=== PATIENT | female | born 1990 | race Caucasian/White ===

== ENCOUNTER 2018-05-23 22:30 | Emergency (ER) | payer SELFPAY ==
[2018-05-23 22:39] VITALS: BP 128/64; PULSE 79; RESP 18; TEMP 36.6; O2SAT 98
[2018-05-23 22:58] LABS: Bilirubin Negative (Negative); Blood Negative (Negative); Clarity Clear; Glucose Negative (Negative); Ketones Negative (Negative); Leukocyte Esterase Negative (Negative); Nitrite Negative (Negative); Urobilinogen 0.2 EU/dL (Up TO 0.2)
--- NOTE | 2018-05-23 23:05 | ED.GENADUL ---
Disposition Clinical Impression: Vaginal foreign body Disposition: HOME Condition: Good Additional Instructions: You had a tampon that was stuck to the iud strings so the iud had to be removed. Please use condoms when having intercourse to prevent I have placed you on our follow up list for help with insurance and also to see women's wellness for iud placement if you have severe worsening of pain or fevers return to the emergency department Medical Decision Making - Medical Decision Making Pt here with retained foreign body on exam that was removed and had to remove IUD with it. She has no abdominal tenderness at this time, suspect her pain could have been from retained foreign body, no discharge or pain now so doubt pid. 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 She has had mild left lower pelvic pain for months and the past day she has had a sensation there is something stuck in her vagina. I performed speculum exam with nurse Edenilson Neves at bedside. The speculum exam showed a retained tampon that appears to have been in there for quite some time and patient is not sure how long it was in there. It was stuck to her IUD strings and I was unable to seperate it from the strings so I had to pull the IUD. No discharge or bleeding during exam. HAs no abdominal tenderness MD Complaint: feeling something in her vagina Onset/Timin -: days(s) Improves with: none Worsens with: none - Related Data Acetaminophen [Tylenol] 1 tab PO PRN PRN 04/16/14 Ibuprofen [Advil] 1 tab PO PRN PRN 04/16/14 Ondansetron ODT [Zofran Odt] 4 mg PO Q8H PRN PRN #20 tabef 08/12/17 Allergies Allergy/AdvReac Type Severity Reaction Status Date / Time gluten AdvReac Intermediate GI symptoms Unverified 08/12/17 19:41 Review of Systems Constitutional: denies: fever Respiratory: denies: shortness of breath Cardiovascular: denies: chest pain Gastrointestinal: denies: nausea, vomiting Neurological: denies: headache Comment: All other systems reviewed and negative Past Medical History - Past Medical History Medical history: no medical history - Social History Alcohol use: rarely Drug use: marijuana General Exam - General Limitations: no limitations General appearance: alert, in no apparent distress - Head Head exam: Present: atraumatic - Eye Eye exam: Present: normal apperance - ENT ENT exam: Present: mucous membranes moist - Neck Neck exam: Present: normal inspection - Respiratory Respiratory exam: Absent: respiratory distress - Cardiovascular Cardiovascular Exam: Present: regular rate - GI/Abdominal GI/Abdominal exam: Present: soft. Absent: distended, tenderness, guarding, rebound, rigid - External exam: Present: normal external exam Speculum exam: Present: foreign body. Absent: vaginal discharge, cervical discharge, vaginal bleeding - Extremities Exam Extremities exam: Present: normal inspection - Neurological Exam Neurological exam: Present: alert, oriented X3 - Psychiatric Psychiatric exam: Present: anxious - Skin Skin exam: Present: warm Course Vital Signs - 24 hr 05/23/18 22:39 Temperature 97.9 F Pulse 79 Respiratory 18 Rate Blood Pressure 128/64 Pulse Oximetry 98
--- NOTE | 2018-05-24 14:32 | PDOC.ERCMPRO ---
Care Management Progress Note 05/24-Dr. Batista requested assistance with a [facility] and PCP (Dr. Peralta professional fee coder) within 2 weeks for vaginal foreign body, tampon stuck in IUD strings and IUD was removed. Referral faxed to [facility] and [facility].
--- NOTE | 2018-05-24 14:33 | CMPROGNOTE_ITS ---
Care Management Progress Note 05/24-Dr. Batista requested assistance with a [facility] and PCP (Dr. Peralta customer relations coordinator) within 2 weeks for vaginal foreign body, tampon stuck in IUD strings and IUD was removed. Referral faxed to [facility] and [facility].
== END 2018-05-23 23:25 | disposition home or self-care (01) ==
PROVIDERS: Emergency Provider Emergency Medicine; PCP Nurse Practitioner Family
DX: T19.2XXA Foreign body in vulva and vagina, initial encounter (principal); T83.32XA Displacement of intrauterine contraceptive device, initial encounter; Y84.8 Other medical procedures as the cause of abnormal reaction of the patient, or of later complication, without mention of misadventure at the time of the procedure
CPT/HCPCS: 81025; 99284; 58301; 81003

== ENCOUNTER → 2018-05-28 14:00 | Outpatient (REF) | payer SELFPAY ==
--- NOTE | 2018-05-28 13:00 | PAPFT_PTH ---
PATIENT: Monika Conde LOC: [facility] U#:[id number] AGE/SX: 35/F ROOM: RE05/28/[address]: Rosalinda Rose MD : 1990 BED: DIS: SPEC #: [id number] RECD: 05/28/18 18:00 STATUS: WAYLON REGarima #: [id number] YESIKA: 05/28/18 13:[address]: Rosalinda Rose DEPT: [facility] Cytology RECD BY: Rubina Butt ENTERED: 05/28/18 18:00 SP TYPE: PAPFT OTHR DR: Felicia Au Tissues: 1 - CX/ENDOCX FOR PAP SMEARS Procedures: PAP THIN PREP/UVM Screening HPV DNA PROBE Comments: [id number]
== END ==
LOC: LBN 14:00
PROVIDERS: PCP Nurse Practitioner Family; Visit Provider Obstetrics & Gynecology
DX: Z12.4 Encounter for screening for malignant neoplasm of cervix (principal)
CPT/HCPCS: 88142; 87624

== ENCOUNTER 2018-09-13 14:14 | Outpatient (CLI) | payer SELFPAY ==
--- NOTE | 2018-09-13 10:24 | DI.US_ITS ---
SYMPTOM/DIAGNOSIS: PELVIC PAIN, R10.2 LLQ PAIN PELVIC ULTRASOUND: 09/13 Pelvic ultrasound was performed transabdominally and transvaginally. Please see the accompanying data sheet for measurements of the pelvic structures. There is moderate amount of free fluid in the cul de sac and right sabrina-ovarian area. The myometrium is unremarkable in appearance. Endometrial stripe is about 7 mm in thickness and appears homogeneous. The right ovary has a normal follicular appearance. The left ovary contains solid 21 x 15 x 23 mm in diameter lesion with some peripheral vascularity. This may represent a corpus luteum. Ovarian mass not excluded and follow up ultrasound is requested in 4-6 weeks.
== END 2018-09-13 14:34 ==
PROVIDERS: Visit Provider Obstetrics & Gynecology
DX: R10.2 Pelvic and perineal pain (principal); R10.32 Left lower quadrant pain; N83.12 Corpus luteum cyst of left ovary
CPT/HCPCS: 76830; 76856

== ENCOUNTER 2018-09-15 16:14 | Emergency (ER) | payer SELFPAY ==
[2018-09-15 16:19] VITALS: BP 102/67; PULSE 79; RESP 18; TEMP 36.8; O2SAT 97
--- NOTE | 2018-09-15 16:37 | W.ED.GENAD ---
Discharge Plan Disposition Patient Disposition: HOME Condition: Good Discharge Details Chief Complaint: Nk/Back Pain Clinical Impression: Lumbago Primary Care Provider: None,None ED Provider: Elvis Patterson Home Meds and New Rx's Prescriptions: New acetaminophen [Mapap Extra Strength] 500 MG tablet 1,000 mg PO Q6H 5 Days Qty: 60 RF: 0 lidocaine [Lidoderm] 1 PATCH patch 1 patch Topical Q24H Qty: 4 RF: 0 ibuprofen [Motrin IB] 200 MG tablet 600 mg PO Q6H 5 Days Qty: 60 RF: 0 cyclobenzaprine 10 mg tablet 10 mg PO TID Qty: 10 RF: 0 Discharge Instructions Instructions: Low Back Strain (ED) Additional Instructions: Please use ice and heat on your back to improve your symptoms. Please take medication as directed. Please do not take the Flexeril when driving, operating heavy machinery, swimming, or using firearms. If you notice any worsening of your symptoms, or any new symptoms such as numbness or tingling in your groin, bowel or bladder incontinence, vomiting, diarrhea, fever, chills, shortness of breath, chest pain, numbness, weakness, or fainting , please return immediately to the emergency department for reevaluation. Please follow up with your primary care provider as soon as possible for reassessment and reevaluation. As always, it was a pleasure participating in your medical care today. Medical Decision Making This is a 27-year-old female who presents today for back pain. Roughly 5 days ago the patient slipped on some ice and landed on her buttock and back. She had some mild pain and tightness since then which is gradually increased. It is worsened when she has prolonged sitting which is the main position of her new job. Additionally the patient states that her symptoms are worsened when she lifts her 100 pound dog up her flight of stairs at home. Physical exam demonstrates no red flags suggestive of cauda equina syndrome, significant lumbar pathology. There is no midline tenderness, no saddle anesthesia, no history of bowel or bladder incontinence, she has normal strength, normal reflexes. Her signs and symptoms on physical exam and per history appear musculoskeletal in nature, and I feel she has a paraspinal muscle sprain that is the cause of her symptoms. We discussed further imaging, and at this time the patient would like to hold off on any additional imaging. I do think this is very reasonable giving her current clinical scenario. Patient will be discharged home with NSAIDs, recommendations for ice and heating pads, Flexeril and Lidoderm patch. We had a long discussion regarding red flags which to return the patient understands. I have extensively reviewed the treatment plan and discharge instructions with the patient. I have addressed all patient concerns at this time. The patient was made aware of what symptoms to monitor for that would warrant a return to the emergency department. Discussed the plan with the patient, they demonstrate verbal understanding and agreement with our assessment and plan at this time. HPI General Date/Time Provider Initiated Documentation: 09/15/18 16:33. HPI Narrative: This is a pleasant 27-year-old female who presents for evaluation of back pain. Patient states that she fell 5 days ago while slipping on ice. She landed on her buttock, but after that she had noticed some tightness in her back. Pain was located paraspinally in the upper lumbar vertebra. It is worsened with movement, and worsened by prolonged sitting. She also recently switched jobs and now works at [employer], which leads to a prolonged amount of sitting in general, which she feels is worsening her symptoms. Additionally she has a 100 pound dog that she has been caring up and down her stairs at home which she also says worsens her symptoms. She denies any associated numbness tingling or weakness traveling down her legs. She denies any new or acute abdominal pain, vomiting, diarrhea, or dysuria. She denies any cough, fever, or chills. She denies any bowel or bladder incontinence. She denies any groin numbness or tingling. She denies any weakness of her legs. Of note the patient does have a prolonged history of ovarian cysts and pain, and is currently being treated for bacterial vaginosis and a vaginal yeast infection. She denies any new or worsening dysuria, new or worsening pelvic pain, no worsening vaginal discharge. She denies any other associated complaints. She denies any systemic symptoms of fever or chills. She did have an ultrasound within the last 72 hours, the results of which have been discussed with her and she is following up with obstetrics for. Results are included here: Pelvic ultrasound was performed transabdominally and transvaginally. Please see the accompanying data sheet for measurements of the pelvic structures. There is moderate amount of free fluid in the cul de sac and right sabrina-ovarian area. The myometrium is unremarkable in appearance. Endometrial stripe is about 7 mm in thickness and appears homogeneous. The right ovary has a normal follicular appearance. The left ovary contains solid 21 x 15 x 23 mm in diameter lesion with some peripheral vascularity. This may represent a corpus luteum. Ovarian mass not excluded and follow up ultrasound is requested in 4-6 weeks. Related Data Home Medications Medication Instructions Recorded Confirmed acetaminophen [Mapap Extra 1,000 mg PO Q6H 5 Days #60 tab 09/15/18 Strength] cyclobenzaprine 10 mg PO TID #10 tab 09/15/18 ibuprofen [Motrin Ib] 600 mg PO Q6H 5 Days #60 tab 09/15/18 lidocaine [Lidoderm] 1 patch TOPICAL Q24H #4 patch 09/15/18 Previous Rx's Medication Instructions Recorded acetaminophen [Mapap Extra 1,000 mg PO Q6H 5 Days #60 tab 09/15/18 Strength] cyclobenzaprine 10 mg PO TID #10 tab 09/15/18 ibuprofen [Motrin Ib] 600 mg PO Q6H 5 Days #60 tab 09/15/18 lidocaine [Lidoderm] 1 patch TOPICAL Q24H #4 patch 09/15/18 Allergies Allergy/AdvReac Type Severity Reaction Status Date / Time gluten AdvReac Intermediate GI symptoms Unverified 09/15/18 16:18 General Stated Complaint: Nk/Back Pain SHONDA: 4 Review of Systems Review of Systems All systems reviewed & are unremarkable except as noted in HPI and below PFSH Family History Grandmother Non-Hodgkin lymphoma Family History Grandmother Non-Hodgkin lymphoma Social History Smoking/Tobacco Use Status: Former Tobacco Use Social History Smoking/Tobacco Use Status: Former Tobacco Use Exam Narrative Exam Narrative: 1.Const: Well-nourished, Well-developed, appearing stated age 2.Eyes: PERRL, no conjunctival injection, and symmetrical lids. 3.ENT: Atraumatic external nose and ears. Moist MM. Neck: Symmetric, trachea midline, No thyromegaly. 4.CVS: +S1/S2, No murmurs or gallops. Peripheral pulses 2+ and equal in all extremities. Brisk capillary refill in all extremities. 5.RESP: Unlabored respiratory effort. Clear to auscultation bilaterally. No wheezes rales or rhonchi 6.GI: Soft, Nontender/Nondistended, No hepatosplenomegaly. No guarding or rebound. No significant pelvic tenderness. No guarding or rebound in the pelvic regions. No CVA tenderness peer 7.MSK: Normocephalic/Atraumatic, Extremities w/o deformity or ttp No cyanosis or clubbing, Normal movement of all extremities. No midline tenderness to palpation over the CTLS spine. Normal ROM in flexion, extension, side bend, and rotation. Patient does have mild to moderate paraspinal tenderness around L1. Notable muscle spasms. Patient has +5 out of 5 strength in the lower extremities in dorsiflexion and plantarflexion, knee flexion and extension, hip flexion and extension. There is +2 over 2 dorsalis pedis pulses bilaterally. There is normal sensation to the skin with light touch at the foot, knee, and hip. Normal saddle sensation. Good sensation over the deep sural nerve area bilaterally. Rectal exam was performed with female nurse Natalya at bedside with patient demonstrated good perirectal sensation and rectal tone. Reflexes are +2 over 4 in the patellar reflex bilaterally. Negative straight leg raise. No significant hip tenderness or hip instability. 8.Skin: Warm, Dry. No rashes or lesions. 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 Sensation grossly intact, no focal neurologic deficits. Please see musculoskeletal 10.Psych: (AAO) x3. Appropriate mood and affect Course Vital Signs Temperature 36.8 C 09/15/18 16:19 Pulse 79 09/15/18 16:19 Respiratory Rate 18 09/15/18 16:19 Blood Pressure 102/67 09/15/18 16:19 Pulse Oximetry 97 09/15/18 16:19 Temperature 36.8 C 09/15/18 16:19 Temperature Source Temporal Artery Scan 09/15/18 16:19 Pulse 79 09/15/18 16:19 Respiratory Rate 18 09/15/18 16:19 Respiratory Effort Non-Labored 09/15/18 16:25 Blood Pressure 102/67 09/15/18 16:19 Blood Pressure Position Sitting 09/15/18 16:19 Pulse Oximetry 97 09/15/18 16:19 Oxygen Delivery Method Room Air 09/15/18 16:19 Oxygen Flow Rate 0 09/15/18 16:19 Pain Level 8 09/15/18 16:19
[2018-09-15] MEDS: Acetaminophen 500 MG TAB 1000 MG PO (16:41)
[2018-09-15] MEDS: Ibuprofen 800 MG TAB PO (16:41)
[2018-09-15] MEDS: Lidocaine 5% Patch 1 PATCH TP (16:42)
== END 2018-09-15 16:50 | disposition home or self-care (01) ==
LOC: ER 16:59
PROVIDERS: Emergency Provider Student in an Organized Health Care Education/Training Program
DX: M54.5 Low back pain (principal); W00.0XXA Fall on same level due to ice and snow, initial encounter
CPT/HCPCS: 99283

== ENCOUNTER 2018-09-26 00:50 | Outpatient (CLI) | payer SELFPAY ==
--- NOTE | 2018-09-26 08:45 | DI.US_ITS ---
SYMPTOM/DIAGNOSIS: F/U OVARIAN CYST, N83.209, N94.6 PELVIC ULTRASOUND: Comparison is made with 09/13/18. Transabdominal and transvaginal pelvic ultrasound was performed. The uterus measures 6.6 cm. long by 3 cm. AP by 4.8 cm. transverse. The endometrial stripe is within normal limits at .6 cm. No myometrial mass is present. The right ovary measures 2.3 by 1.5 by 1.2 cm. There are small follicular cysts present. There is normal blood flow to the right ovary. No evidence of torsion is present. The left ovary measures 2.8 by 2.1 by 3.0 cm. There are simple cysts seen within the left ovary, the largest measuring 2.0 cm. The previously noted hypoechoic lesion on the left ovary is no longer visualized. There is normal blood flow to the left ovary. No evidence of torsion is seen. There is a small amount of free fluid in the cul-de-sac which is likely physiologic. No hydronephrosis is identified. IMPRESSION: Normal pelvic ultrasound. Resolution of the left ovarian lesion. Benign bilateral physiologic cysts are seen in the ovaries.
== END 2018-09-26 01:10 ==
PROVIDERS: Visit Provider Obstetrics & Gynecology
DX: N83.202 Unspecified ovarian cyst, left side (principal); N94.6 Dysmenorrhea, unspecified
CPT/HCPCS: 76830; 76856

== ENCOUNTER 2019-01-31 07:43 | Emergency (ER) | payer OTHER, SELFPAY ==
[2019-01-31 07:53] VITALS: BP 108/54; PULSE 74; RESP 14; TEMP 37.2; O2SAT 99
[2019-01-31] MEDS: Normal Saline 1,000 ML 1000 ML IV ×2 (08:20→09:14)
--- NOTE | 2019-01-31 08:30 | DI.US_ITS ---
Many abnormalities cannot be diagnosed. A normal exam does not exclude a congenital anomaly. Radiology No. LMP: 12/15/18 Exam Date: 01/31/19 [facility] wks days on EDC ([facility]) Confirmed: HISTORY: LLQ PAIN, ? CYST PREDICTED GESTATIONAL AGE NUMBER 6.5 weeks with a range of 5.5 week to 7.5 weeks. 1 Determined by___[id number]_X_LMP___HISTORY Info. pertaining to fetus # PLACENTA PRESENTATION Grade Cephalic___ Anterior___Posterior___ Breech____ Right Left Transverse(head right___ Fundal___Low-lying___Previa___ Transverse(head left___ Varying__X____ BIOMETRY AMNIOTIC FLUID BPD: mm weeks Normal HC: mm weeks Oligo Polyhydramnios AC: mm weeks FL: mm weeks AMNIOTIC FLUID INDEX >26 WK CRL: 15.3 mm 7.6 weeks Cisterna Magna: mm CI: RUQ: LUQ Cerebellum: cm EFW: grams Percentile RLQ: LLQ Total: cms Composite AGE= 7.6 wks EDC by US___09/13/19 BIOPHYSICAL PROFILE ANATOMY IDENTIFIED SCORE 0/2 Heart: 4-Chamber___Rate:BPM___163__ LVOT: RVOT: Amniotic Fluid(>2cms)____ Stomach: Kidneys: Respirations (>30 secs) Bladder: Post. Fossa: Body Flex/Extension 3 vessel cord: Ventricles: cord insertion: Lips:____ Extremity Flex/Extension spinal morphology: Nose: Total Score= Palate: NS=not seen OB ultrasound was performed utilizing first trimester protocol. There is a viable intrauterine gestation with crown rump length measurements consistent with a gestational age of 7 weeks 6 days and an EDC of 09/13/19. cardiac activity was observed at a rate of 163 BPM. Unremarkable appearance of the gestational sac. Limited scanning of the kidneys is unremarkable. Tiny quantity of free fluid noted in the pelvis which is likely physiologic. The ovaries have an unremarkable follicular appearance.
--- NOTE | 2019-01-31 08:36 | ED.GENADUL_ITS ---
Discharge Plan Disposition Patient Disposition: HOME Condition: Stable Discharge Details Chief Complaint: Abd Prob Clinical Impression: Hyperemesis gravidarum Primary Care Provider: None,None ED Provider: Cj Batista Home Meds and New Rx's Prescriptions: New Diclegis 10-10 mg tablet,delayed release (DR/EC) 1 tab PO DAILY Qty: 60 RF: 1 ondansetron 4 mg tablet,disintegrating 4 mg PO TID PRN (Reason: nausea and vomiting) 5 Days Qty: 30 RF: 0 Discharge Instructions Instructions: Hyperemesis Gravidarum (ED) Additional Instructions: I placed you on our follow up list for OBGYN follow up mannie for the diclogis, take two tablets at bedtime on day 1 and 2, if symptoms persist take 1 tablet in the morning and 2 at bedtime on day 3. IF symptoms persist, may increase to 1 tablet in the morning, 1 tablet in mid afternoon and 2 tablets at bedtime. Max dose of 4 tablets per day if you still have vomit after diclogis take zofran if you still have persistent vomit, feel dehydrated or have severe worsening pain return to the emergency department Medical Decision Making 28 yo female at about 8 weeks per pt comes in with n/v for 3 days and intermittent left lower pelvis pain, states this was natural conception without use of ivf. She has not been able to keep anything down for a few days and has had intermittent sharp left lower pelvic pain. Denies vaginal bleeding. On exam has soft nondistended abdomen without tenderness or distention, she localizes the pain to the left lower pelvis. Given exam unlikely diverticulitis, appendicitis or other general surgical pathology. Could be ovarian cyst, less likely torsion, will obtain u/s. On bedside u/s has live iup with fhr of 150 labs show no significant abnormalities, and u/s shows live iup otherwise no acute findings. She feels much better and is tolerating PO without pain. I suspect round ligament pain and hyperemesis. Will d/c with antiemetics and f/u with ob and return if worsening. We did discuss risks of zofran and she would like to have it in case she does still have n/v despite diclegis Differential Diagnosis hyperemesis, torsion, cyst Medical Records Medical records reviewed: Yes I reviewed the patient's medical records. Imaging Data Radiologic Study: Attestation: I personally reviewed and interpreted this imaging study as follows: Imaging: Ultrasound My impression: live iup, FHR 160 Lab Data Lab results reviewed: Yes I reviewed the patient's lab results. HPI General Mode of arrival: ambulatory . Date/Time Provider Initiated Documentation: 01/31/19 08:15 . Limitations to Documentation: no limitations . Information obtained by: patient . History of Present Illness 28 year old F presents to the emergency department with the chief complaint of nausae and vomit, described as moderate, and is localized to the pelvis. Patient started experiencing this day(s) (3) and it has been intermittent. No relieving factors improve symptom(s), No exacerbating factors reported . Patient did receive the following treatments prior to arrival, none Related Data Home Medications Medication Instructions Recorded Confirmed doxylamine-pyridoxine (vit B6) 1 tab PO DAILY #60 tab 01/31/19 [Diclegis] ondansetron 4 mg PO TID PRN 5 Days #30 tab 01/31/19 Previous Rx's Medication Instructions Recorded doxylamine-pyridoxine (vit B6) 1 tab PO DAILY #60 tab 01/31/19 [Diclegis] ondansetron 4 mg PO TID PRN 5 Days #30 tab 01/31/19 Allergies Allergy/AdvReac Type Severity Reaction Status Date / Time gluten AdvReac Intermediate GI symptoms Unverified 01/31/19 08:19 General Stated Complaint: Abd Prob SHONDA: 3 Review of Systems Review of Systems All systems reviewed & are unremarkable except as noted in HPI and below Constitutional Denies chills, Denies fever(s) and Denies weakness Cardiovascular Denies chest pain and Denies dyspnea Respiratory Denies cough and Denies dyspnea Integumentary/Breasts Denies rash Neurologic Denies weakness Endocrine Denies cold intolerance PFSH Family History Grandmother Non-Hodgkin lymphoma Social History Smoking/Tobacco Use Status: Former Tobacco Use Alcohol Intake: never Drug use: Daily Do you feel safe at home: Yes Do you feel safe in your relationship?: Yes Exam Const General: no acute distress Orientation: alert HENMT Head: normal to inspection Ears: external ears normal General nose exam: external nose normal Mouth: moist mucous membranes Eyes General: appearance normal, both eyes and all related structures Neck Neck: normal visual inspection Resp Effort & Inspection: normal respiratory effort and able to speak in complete sentences Cardio Rate: regular rate GI Palpation: soft Skin General skin exam: no rashes or lesions noted Neuro General: alert and oriented x3 Extrem General: normal to inspection Psych Mental Status: mental status grossly normal Course Vital Signs Temperature 37.2 C 01/31/19 07:53 Pulse 74 01/31/19 07:53 Respiratory Rate 14 01/31/19 07:53 Blood Pressure 108/54 L 01/31/19 07:53 Pulse Oximetry 99 01/31/19 07:53 Temperature 37.2 C 01/31/19 07:53 Temperature Source Temporal Artery Scan 01/31/19 07:53 Pulse 74 01/31/19 07:53 Respiratory Rate 14 01/31/19 07:53 Blood Pressure 108/54 L 01/31/19 07:53 Blood Pressure Position Sitting 01/31/19 07:53 Pulse Oximetry 99 01/31/19 07:53 Oxygen Delivery Method Room Air 01/31/19 07:53 Oxygen Flow Rate 0 01/31/19 07:53 Pain Level 5 01/31/19 07:53
[2019-01-31] MEDS: Ondansetron 4 MG/2 ML VIAL IVP (08:40)
[2019-01-31 08:41] LABS: Abs Immature Grans 0.02 k/cumm (0.0-0.09); Absolute Basophil Count 0.02 k/cumm (0.0-0.2); Absolute Eosinophil Count 0.05 k/cumm (0.0-0.7); Absolute Lymphocyte Count 1.64 k/cumm (1.2-3.4); Absolute Monocyte Count 0.54 k/cumm (0.11-0.7); Absolute Neutrophil Count 7.75 k/cumm (1.2-6.7); Basophils % 0.2; Eosinophils % 0.5; HCT 33.7 % (36.0-46.0); HGB 11.4 g/dL (12.0-15.5); Immature Grans % 0.2; Lymphocytes % 16.4; Mean Corp. HGB Concentration 33.8 g/dL (32.0-36.0); Mean Corpuscular Hemoglobin 30.1 pg (27.0-33.0); Mean Corpuscular Volume 88.9 fL (80-95); Mean Platelet Volume 10.5 fL (8.0-11.0); Monocytes % 5.4; Neutrophils % 77.3; Platelet Count 222 x1000/uL (130-400); RBC 3.79 m/cumm (4.00-5.20); RBC Distribution Width 13.7 % (11.7-14.6); White Blood Cell Count 10.02 k/cumm (4.4-10.8)
[2019-01-31 08:43] LABS: Bilirubin Negative (Negative); Blood Trace-intact (Negative); Clarity Clear; Glucose Negative (Negative); Ketones 40 mg/dL (Negative); Leukocyte Esterase Negative (Negative); Nitrite Negative (Negative); Urobilinogen 0.2 EU/dL (Up TO 0.2); pH 6.5 (5-8)
[2019-01-31 08:56] LABS: Bacteria Negative HPF (Negative); C & S Indicated? No; Casts Negative LPF (Negative); Crystals Negative HPF (Negative); Epithelial Cells Few HPF (Negative); Mucus Negative (Negative); RBC 0-2 (0-2); WBC 0-2 HPF (0-5)
[2019-01-31 08:58] LABS: ALT 23 U/L (12-78); AST 13 U/L (15-37); Albumin 3.8 g/dL (3.4-5.0); Alkaline Phosphatase 42 U/L (46-116); Anion Gap 10.8 mmol/L (3-11); BUN 8 mg/dL (7-18); Bilirubin, Total 0.6 mg/dL (0.2-1.0); CO2 24.2 mmol/L (21.0-32.0); CREATININE 0.64 mg/dL (0.55-1.02); Calcium 8.6 mg/dL (8.5-10.1); Chloride 102 mmol/L (98-107); Glucose 89 mg/dL (70-100); Lipase 45 U/L (73-393); Magnesium 1.9 mg/dL (1.8-2.4); Potassium 3.2 mmol/L (3.5-5.1); Sodium 137 mmol/L (136-145)
[2019-01-31] MEDS: Normal Saline Flush 10 ML SYR IVP (09:15)
[2019-01-31 10:34] VITALS: BP 103/57; PULSE 64; RESP 16; TEMP 37.2; O2SAT 98
== END 2019-01-31 10:50 | disposition home or self-care (01) ==
PROVIDERS: Emergency Provider Emergency Medicine
DX: O21.0 Mild hyperemesis gravidarum (principal); Z3A.08 8 weeks gestation of pregnancy
CPT/HCPCS: 36415; 80053; 83690; 96361; 96374; 99284; 76801; 81003; 81015; 83735; 84702; 85025; J2405; J3490

== ENCOUNTER 2019-11-24 18:27 | Emergency (ER) | payer MEDICAID, SELFPAY ==
[2019-11-24 18:39] VITALS: BP 120/66; PULSE 102; RESP 15; TEMP 36.7; O2SAT 98
--- NOTE | 2019-11-24 19:21 | W.ED.GENAD ---
Discharge Plan Disposition Patient Disposition: HOME Condition: Stable Discharge Details Chief Complaint: Fever Clinical Impression: Viral URI with cough Primary Care Provider: Vikki Sparks ED Provider: Dania Roth Discharge Instructions Instructions: Upper Respiratory Infection (ED), Acute Cough (ED) Additional Instructions: Drink plenty of fluids and get plenty of rest. Alternate tylenol and motrin as needed and directed for pain. Motrin or ibuprofen is safe while breast-feeding. Take [id number] cough and cold medication as needed and directed. Follow-up with your primary care doctor in 1 week. Return to the emergency department with any worsening or new concerning symptoms. Discharge Data Discharge Date/Time-TO BE ENTERED AT DEPARTURE: 11/24/19 19:25 Discharge Physician: Dania Roth Medical Decision Making 29-year-old female with a history of migraines presents for cough, nasal congestion, fever, body aches for the past few days. T-max 102. Denies any sore throat, ear pain or shortness of breath. Admits to some diarrhea but denies any vomiting. Heart rate 102 on arrival, normal on my exam. Afebrile. Patient appears uncomfortable with URI symptoms but otherwise nontoxic. Normal ENT exam. Lungs clear. Abdomen soft nontender. Rapid influenza obtained on arrival and negative. Presentation appears likely consistent with viral syndrome, viral URI with cough. Do not see indication for antibiotics at this time. Do not see indication for strep test or other lab testing. Patient wanted to make sure she did not have the flu as she has a 3-month-old at home. She was advised to increase fluids, rest and continue symptomatic treatment at home. Advised to follow up with the primary care doctor for re-evaluation. Usual and customary return precautions given prior to discharge. Medical Records Medical records reviewed: Yes I reviewed the patient's medical records. HPI General Mode of arrival: ambulatory. Date/Time Provider Initiated Documentation: 11/24/19 18:47. Limitations to Documentation: no limitations. Information obtained by: patient. History of Present Illness 29 year old F presents to the emergency department with the chief complaint of Cough, congestion, fever, body aches, Quality is described as aching, Patient started experiencing this day(s) (4) and it has been constant. Medication improves symptom(s), No exacerbating factors reported . Patient notes cough, fever/chills (T-max 102), headaches, loss of appetite and malaise; denies chest pain, diaphoresis, nausea/vomiting, rash, seizure, shortness of breath, syncope and weakness. Patient did receive the following treatments prior to arrival, other (Tylenol 1 hour ago) Related Data Allergies Allergy/AdvReac Type Severity Reaction Status Date / Time gluten AdvReac Intermediate GI symptoms Unverified 11/24/19 18:43 General Stated Complaint: Fever SHONDA: 3 Review of Systems All systems reviewed & are unremarkable except as noted in HPI and below Constitutional Constitutional: Reports as per HPI, Denies chills and Denies fever(s) Eyes Eyes: Denies blurry vision ENT Ears, Nose, Mouth, and Throat: Denies dizziness, Denies sore throat and Denies throat swelling Cardiovascular Cardiovascular: Denies chest pain and Denies dyspnea Respiratory Respiratory: Reports cough and Denies dyspnea Gastrointestinal Gastrointestinal: Denies abdominal pain, Denies diarrhea and Denies vomiting Genitourinary Genitourinary: Denies hematuria and Denies dysuria Musculoskeletal Musculoskeletal: Denies back pain and Denies numbness Integumentary/Breasts Skin/Breast: Denies lesions and Denies rash Neurologic Neurologic: Denies dizziness, Denies focal weakness and Denies numbness Allergic/Immunologic Allergic/Immunologic: Denies throat swelling [facility], [facility] Medical History (Updated 11/28/19 @ 12:26 by Dania Roth DO) Chronic back pain (Acute) Gluten intolerance (Acute) Migraine (Chronic) Social History Smoking/Tobacco Use Status: Former Tobacco Use Alcohol Intake: never Drug use: Never Substance use type: does not use Do you feel safe at home: Yes Do you feel safe in your relationship?: Yes Exam Const General: cooperative, healthy appearing and no acute distress HENMT Head: normal to inspection Ears: hearing grossly normal bilaterally, external ears normal and TM's normal bilaterally General nose exam: external nose normal Mouth: oral mucosae normal Throat: posterior oropharynx normal, uvula midline and no peritonsillar masses Eyes General: appearance normal, both eyes and all related structures Neck Neck: normal visual inspection, no lymphadenopathy, no meningeal signs, trachea midline, supple and No submandibular swelling Resp Effort & Inspection: normal respiratory effort and able to speak in complete sentences Auscultation: clear to auscultation bilaterally Cardio Rate: regular rate Rhythm: regular rhythm Skin General skin exam: no rashes or lesions noted Neuro General: alert, awake, oriented x3, moves all extremities and no meningeal signs Motor: muscle tone normal throughout Extrem General: normal to inspection and full ROM Psych Appearance: grossly normal Affect: normal affect Course Vital Signs Vital signs: Vital Signs Temperature 98.1 F 11/24/19 18:39 Pulse 102 H 11/24/19 18:39 Respiratory Rate 105 H 11/24/19 18:39 Blood Pressure 120/66 11/24/19 18:39 Pulse Oximetry 98 11/24/19 18:39 Temperature 98.1 F 11/24/19 18:39 Temperature Source Temporal Artery Scan 11/24/19 18:39 Pulse 102 H 11/24/19 18:39 Respiratory Rate 105 H 11/24/19 18:39 Respiratory Effort Non-Labored 11/24/19 19:05 Blood Pressure 120/66 11/24/19 18:39 Pulse Oximetry 98 11/24/19 18:39 Oxygen Delivery Method Room Air 11/24/19 18:39 Oxygen Flow Rate 0 11/24/19 18:39 Pain Level 0 11/24/19 18:39 Lab/Test Results Lab/Test Results: 11/24/19 18:45 Nasopharynx Influenza Types A,B Antigen - Final
== END 2019-11-24 19:25 | disposition home or self-care (01) ==
PROVIDERS: Emergency Provider Physician Assistant
DX: J06.9 Acute upper respiratory infection, unspecified (principal); R05 Cough; B34.9 Viral infection, unspecified
CPT/HCPCS: 87449; 99282

== ENCOUNTER 2021-10-02 12:43 | Outpatient (REF) | payer MEDICAID, SELFPAY ==
[2021-10-04 15:08] LABS: Chlamydia Result Negative (Negative); GC Result Negative (Negative)
== END 2021-10-02 12:44 | disposition home or self-care (01) ==
LOC: NCHCN 12:43
PROVIDERS: Visit Provider Physician Assistant Medical
DX: N89.8 Other specified noninflammatory disorders of vagina (principal); Z11.3 Encounter for screening for infections with a predominantly sexual mode of transmission
CPT/HCPCS: 87491; 87591; 87480; 87510; 87660

== ENCOUNTER 2022-04-07 17:20 | Emergency (ER) | payer MEDICAID, SELFPAY ==
[2022-04-07 17:23] VITALS: BP 125/48; PULSE 82; RESP 17; TEMP 36.9; O2SAT 99
[2022-04-07 17:29] VITALS: RESP 18
--- NOTE | 2022-04-07 17:30 | W.ED.GENAD ---
Discharge Plan Disposition Patient Disposition: HOME Condition: Stable Discharge Details Clinical Impression: Nausea and vomiting in prior to 22 weeks gestation Primary Care Provider: Vikki Sparks ED Provider: Dania Roth Home Meds and New Rx's Prescriptions: New ondansetron 4 mg tablet,disintegrating 4 mg PO TID PRN (Reason: nausea and vomiting) Qty: 6 0RF Discharge Instructions Additional Instructions: Your lab work today is reassuring and shows no evidence of acute concerning or significant findings. Take the Zofran as needed and directed for nausea and vomiting. Drink plenty of fluids and get plenty of rest. Call your sand cutter operator at [facility] for any further recommendations and follow-up with your scheduled appointment next month. Return immediately to the emergency department if you develop any worsening or new concerning symptoms such as persistent vomiting, severe abdominal pain or any other concerns. Discharge Data Discharge Date/Time-TO BE ENTERED AT DEPARTURE: 04/07/22 19:32 Discharge Physician: Dania Roth Medical Decision Making 31-year-old female G3, L2 currently at 6 to 7 weeks based on approximate LMP of 02/13/2022 presents with nausea and vomiting since yesterday. She currently denies any abdominal pain. Vitals within normal limits. Patient appears comfortable and nontoxic. As she states she has had intermittent left lower quadrant crampy abdominal pain for the past several months and states this is no worse than usual and occurs mainly with coughing and bowel movements and she is currently pain-free with soft and nontender abdomen, history and presentation does not appear consistent with ectopic . Suspect nausea and vomiting in early . We will place an IV, bolus IV fluids, screening labs, urinalysis. Labs reviewed. White blood cell count 12 which may be stress response. Normal electrolytes. Lipase within normal limits. Beta quant at expected level based on approximate LMP of [id number]. Urinalysis negative for infection. Patient reassessed and she feels much better. Will attempt p.o. challenge. Zofran bottle given to go. Advised to call [facility] tomorrow for any further recommendations and follow-up with her first OB appointment next month. Usual and customary return precautions given prior to discharge. Medical Records Medical records reviewed: Yes I reviewed the patient's medical records. Lab Data Lab results reviewed: Yes I reviewed the patient's lab results. Labs: Laboratory Tests Range/Units 04/07/22 04/07/22 04/07/22 17:40 17:40 17:40 WBC (4.4-10.8) 10^3/uL 12.53 H RBC (3.93-5.22) 10^6/uL 4.27 Hgb (11.2-15.7) g/dL 12.5 Hct (36.0-46.0) % 37.7 MCV (80-95) fL 88 MCH (27.0-33.0) pg 29.3 MCHC (32.0-36.0) % 33.2 RDW (11.7-14.6) % 13.8 Plt Count (130-400) 10^3/uL 311 MPV (8.0-11.0) fL 10.1 Immature Gran % 0.3 Neutrophils % 73.6 Lymphocytes % 19.6 Monocytes % 5.5 Eosinophils % 0.7 Basophils % 0.3 Nucleated RBC % (0.0-0.3) % 0.0 Absolute Neutrophils (1.2-6.7) 10^3/uL 9.22 H Absolute Lymphocytes (1.2-3.4) 10^3/uL 2.46 Absolute Monocytes (0.1-0.8) 10^3/uL 0.69 Absolute Eosinophils (0.0-0.7) 10^3/uL 0.09 Absolute Basophils (0.0-0.2) 10^3/uL 0.04 Sodium (136-145) mmol/L 139 Potassium (3.5-5.1) mmol/L 3.6 Chloride (98-107) mmol/L 102 Carbon Dioxide (21.0-32.0) mmol/L 30.7 Anion Gap (3-11) mmol/L 6.3 BUN (7-18) mg/dL 11 Creatinine (0.55-1.02) mg/dL 0.5 L Estimated GFR/1.73 m2 (mL/min/1.73m2) >= 60.00 Glucose (74-106) mg/dL 91 Calcium (8.5-10.1) mg/dL 9.6 Total Bilirubin (0.2-1.0) mg/dL 0.3 AST (15-37) U/L 11 L ALT (14-59) U/L 17 Alkaline Phosphatase (46-116) U/L 45 L Total Protein (6.4-8.2) g/dL 7.6 Albumin (3.4-5.0) g/dL 4.0 Lipase (73-393) U/L 49 Beta HCG, Quant (1-3) mIU/mL [id number] H Urine Color (Yellow) Yellow Urine Clarity (Clear) Cloudy Urine pH (5-8) 7.0 Ur Specific [place] (1.005-1.025) 1.025 Urine Protein (Negative) mg/dL Negative Urine Ketones (Negative) mg/dL Negative Urine Blood (Negative) Negative Urine Nitrite (Negative) Negative Urine Bilirubin (Negative) Negative Urine Urobilinogen (Up TO 0.2) EU/dL 0.2 Ur Leukocyte Esterase (Negative) Negative Urine Glucose (Negative) mg/dL Negative ECG Data Attestation: I personally reviewed and interpreted this ECG (s) as follows: Interpretation: rate of 67, sinus, normal axis, no STEMI. HPI General Mode of arrival: ambulatory. Date/Time Provider Initiated Documentation: 04/07/22 17:24. Limitations to Documentation: no limitations. Information obtained by: patient. HPI Narrative: Patient is a G3, L2 currently at 6 to 7 weeks based on approximate LMP of February 13, 2022 presents for nausea and vomiting since yesterday. She denies any specific abdominal pain at this time but states she has had occasional left lower quadrant cramping for the past several months that mainly occurs with coughing and bowel movements and states this is no worse than usual. She states her vomit has mainly been clear, phlegm, foam and food. She denies any hematemesis. She denies any fever, urinary symptoms or vaginal bleeding. She states she is followed at [facility] and states her first appointment is in April and states she has not yet had an ultrasound for this . Related Data Home Medications Medication Instructions Recorded Confirmed ondansetron 4 mg disintegrating 4 mg PO TID PRN nausea and 04/07/22 tablet vomiting #6 tabs Previous Rx's Medication Instructions Recorded ondansetron 4 mg disintegrating 4 mg PO TID PRN nausea and 04/07/22 tablet vomiting #6 tabs Allergies Allergy/AdvReac Type Severity Reaction Status Date / Time gluten AdvReac Intermediate GI symptoms Unverified 04/07/22 17:28 General Stated Complaint: GenMedical SHONDA: 3 Review of Systems All systems reviewed & are unremarkable except as noted in HPI and below Constitutional Constitutional: Reports as per HPI, Denies chills, Denies excessive sweating, Denies fatigue and Denies fever(s) Eyes Eyes: Denies blurry vision ENT Ears, Nose, Mouth, and Throat: Denies dizziness, Denies sore throat and Denies throat swelling Cardiovascular Cardiovascular: Denies chest pain and Denies dyspnea Respiratory Respiratory: Denies cough and Denies dyspnea Gastrointestinal Gastrointestinal: Denies abdominal pain, Denies diarrhea, Reports nausea and Reports vomiting Genitourinary Genitourinary: Denies hematuria and Denies dysuria Musculoskeletal Musculoskeletal: Denies back pain and Denies numbness Integumentary/Breasts Skin/Breast: Denies lesions and Denies rash Neurologic Neurologic: Denies behavioral changes, Denies confusion, Denies dizziness, Denies localized weakness and Denies numbness Psychiatric Psychiatric: Denies behavioral changes, Denies confusion and Denies depression Endocrine Endocrine: Denies excessive sweating and Denies fatigue Hematologic/Lymphatic Hematologic/Lymphatic: Denies easy bruising and Denies lymphadenopathy Allergic/Immunologic Allergic/Immunologic: Denies throat swelling PFSH All Active Problems (Updated 04/07/22 @ 19:11 by Dania Roth DO) Nausea and vomiting in prior to 22 weeks gestation (Acute) Viral URI with cough (Acute) Medical History (Updated 04/07/22 @ 19:11 by Dania Roth DO) Chronic back pain Gluten intolerance Migraine Surgical History (Updated 04/07/22 @ 19:08 by Dania Roth DO) No significant past surgical history Family History Grandmother Non-Hodgkin lymphoma Social History Smoking/Tobacco Use Status: Former Tobacco Use Smoking risk assessment performed?: Yes Alcohol Intake: never Drug use: Never Substance use type: does not use Do you feel safe at home: Yes Do you feel safe in your relationship?: Yes Exam Const General: cooperative and healthy appearing Orientation: alert, awake and oriented x3 HENMT Head: normal to inspection Ears: hearing grossly normal bilaterally, external ears normal and TM's normal bilaterally General nose exam: external nose normal Face and sinus: normal facial exam Mouth: oral mucosae normal Teeth and gingiva: dentition normal Throat: posterior oropharynx normal Eyes General: appearance normal, both eyes and all related structures Eyelids: eyelids normal Pupils: PERRL EOM: EOM intact bilaterally Neck Neck: normal visual inspection Lymphatic: no lymphadenopathy noted Chest Chest: normal inspection of the chest Resp Effort & Inspection: normal respiratory effort and able to speak in complete sentences Auscultation: clear to auscultation bilaterally Cardio Rate: regular rate Rhythm: regular rhythm GI Inspection: normal to inspection Palpation: soft, not firm, no guarding, no hepatosplenomegaly, no masses and nontender Auscultation: normal bowel sounds Back/Spine/Pelvis Back: no CVA tenderness Skin General skin exam: no rashes or lesions noted Neuro General: patient alert and patient awake Cognition: normal cognition Speech: speech normal Gait: normal gait Motor: muscle tone normal throughout Sensory Exam: no sensory deficits noted Extrem General: normal to inspection, full ROM and capillary refill normal Psych Appearance: grossly normal Mental Status: mental status grossly normal Speech and Movement: speech and movement normal Affect: normal affect Thought Process: normal Course Vital Signs Vital signs: Vital Signs Temperature 98.5 F 04/07/22 17:23 Pulse 82 04/07/22 17:23 Respiratory Rate 17 04/07/22 17:23 Blood Pressure 125/48 L 04/07/22 17:23 Pulse Oximetry 99 04/07/22 17:23 Temperature 98.5 F 04/07/22 17:23 Temperature Source Oral 04/07/22 17:23 Pulse 82 04/07/22 17:23 Respiratory Rate 18 04/07/22 17:29 Respiratory Effort 04/07/22 17:29 Respiratory Depth Normal 04/07/22 17:29 Respiratory Pattern Normal 04/07/22 17:29 Blood Pressure 125/48 L 04/07/22 17:23 Blood Pressure Position Sitting 04/07/22 17:23 Pulse Oximetry 99 04/07/22 17:23 Oxygen Delivery Method Room Air 04/07/22 17:23 Oxygen Flow Rate 0 04/07/22 17:23 Pain Level 0 04/07/22 17:23
[2022-04-07 17:53] LABS: Abs Immature Grans 0.04 10^3/uL (0.0-0.06); Absolute Basophil Count 0.04 10^3/uL (0.0-0.2); Absolute Eosinophil Count 0.09 10^3/uL (0.0-0.7); Absolute Lymphocyte Count 2.46 10^3/uL (1.2-3.4); Absolute Monocyte Count 0.69 10^3/uL (0.1-0.8); Basophils % 0.3; Eosinophils % 0.7; HCT 37.7 % (36.0-46.0); HGB 12.5 g/dL (11.2-15.7); Immature Grans % 0.3; Lymphocytes % 19.6; MCH 29.3 pg (27.0-33.0); MCHC 33.2 % (32.0-36.0); MCV 88 fL (80-95); MPV 10.1 fL (8.0-11.0); Monocytes % 5.5; Neutrophils % 73.6; Platelet Count 311 10^3/uL (130-400); RBC 4.27 10^6/uL (3.93-5.22); RDW 13.8 % (11.7-14.6); RDW-SD 44.7 fL; WBC 12.53 10^3/uL (4.4-10.8)
[2022-04-07 17:54] LABS: Absolute Neutrophil Count 9.22 10^3/uL (1.2-6.7)
[2022-04-07 17:55] LABS: Bilirubin Negative (Negative); Blood Negative (Negative); Clarity Cloudy (Clear); Glucose Negative (Negative); Ketones Negative (Negative); Leukocyte Esterase Negative (Negative); Nitrite Negative (Negative); Specific Gravity 1.025 (1.005-1.025); Urobilinogen 0.2 EU/dL (Up TO 0.2)
--- NOTE | 2022-04-07 18:00 | RT.EKG_ITS ---
APPROVED REPORT Exam: Resting ECG Reason for Exam: dizziness Patient Location: E HR:67 bpm ECG Measurements Heart Rate 67 AXIS GA 169 P 50 QRSd 75 QRS 69 QT 383 T 51 QTc 405 Conclusion Sinus rhythm...normal P axis, V-rate 60- 99. Sinus. Normal axis. No STEMI. I have reviewed and interpreted ECG and agree with software generated interpretation.
[2022-04-07] MEDS: Ondansetron 4 MG/2 ML VIAL IVP (18:21)
[2022-04-07] MEDS: Normal Saline 1,000 ML 1000 ML IV (18:21)
[2022-04-07 18:32] LABS: ALT 17 U/L (14-59); AST 11 U/L (15-37); Alkaline Phosphatase 45 U/L (46-116); Anion Gap 6.3 mmol/L (3-11); BUN 11 mg/dL (7-18); Bilirubin, Total 0.3 mg/dL (0.2-1.0); CO2 30.7 mmol/L (21.0-32.0); CREATININE 0.5 mg/dL (0.55-1.02); Calcium 9.6 mg/dL (8.5-10.1); Chloride 102 mmol/L (98-107); Glucose 91 mg/dL (74-106); Potassium 3.6 mmol/L (3.5-5.1); Sodium 139 mmol/L (136-145); Total Protein 7.6 g/dL (6.4-8.2)
[2022-04-07 18:42] LABS: Lipase 49 U/L (73-393)
[2022-04-07] MEDS: Ondansetron O.D.T. 4 MG TABEF, 3 TABS/BTL PO (19:33)
== END 2022-04-07 19:32 | disposition home or self-care (01) ==
PROVIDERS: Emergency Provider Physician Assistant
DX: O21.8 Other vomiting complicating pregnancy (principal); R42 Dizziness and giddiness
CPT/HCPCS: 36415; 80053; 83690; 93005; 96361; 96374; 99284; 81003; 84702; 85025; 93010; J2405

== ENCOUNTER 2022-09-09 01:47 | Outpatient (CLI) | payer MEDICAID, SELFPAY ==
[2022-09-09 13:52] LABS: ALT 11 U/L (14-59); AST 13 U/L (15-37); Albumin 2.8 g/dL (3.4-5.0); Alkaline Phosphatase 85 U/L (46-116); Anion Gap 8.4 mmol/L (3-11); BUN 6 mg/dL (7-18); Bilirubin, Total 0.2 mg/dL (0.2-1.0); CO2 24.6 mmol/L (21.0-32.0); CREATININE 0.5 mg/dL (0.55-1.02); Calcium 8.3 mg/dL (8.5-10.1); Chloride 102 mmol/L (98-107); Estimated GFR 129.32 (mL/min/1.73m2); Glucose 111 mg/dL (74-106); Potassium 3.3 mmol/L (3.5-5.1); Sodium 135 mmol/L (136-145); Total Protein 6.5 g/dL (6.4-8.2)
== END 2022-09-09 01:48 | disposition home or self-care (01) ==
LOC: LBO 01:47
PROVIDERS: Visit Provider Nurse Practitioner Family
DX: R21 Rash and other nonspecific skin eruption (principal)
CPT/HCPCS: 36415; 80053

== ENCOUNTER 2022-12-26 04:00 | Emergency (ER) | payer MEDICAID, SELFPAY ==
[2022-12-26 04:05] VITALS: BP 153/93; PULSE 67; RESP 18; TEMP 36.4; O2SAT 99
--- NOTE | 2022-12-26 04:27 | ED.GENADUL_ITS ---
Discharge Plan Disposition Patient Disposition: Home Discharge Details Clinical Impression: Frontal headache Primary Care Provider: Vikki Sparks ED Provider: Josue Gauthier Home Meds and New Rx's Prescriptions: Continued Prilosec 10 mg susp,delayed release for recon 10 mg PO DAILY ondansetron 4 mg tablet,disintegrating 4 mg PO TID PRN (Reason: nausea and vomiting) Qty: 6 0RF Discharge Instructions Additional Instructions: Please read all of the information that accompanies these instructions. You were seen in the emergency department for your headache. Your blood work showed no signs of any dangerous conditions/occur during and after ??no signs of preeclampsia. Your elevated blood pressure improved in the emergency department without intervention. Please schedule an appointment with your primary care provider later this week. Please return to the emergency department if your headache worsens if you develop any weakness in any of your extremities or if you become confused. For your pain please take medications as follows: 1. Take acetaminophen (Tylenol), 1,000 mg (two 500 mg tabs) every 6 hours 2. Take ibuprofen (Advil), 400 mg every 6 hours.. Medical Decision Making This is an overall well-appearing hypertensive but not tachycardic nor febrile [age]-year-old female who is 7 weeks with a headache. Her blood pressure is elevated and I am concerned for the possibility of preeclampsia though the patient is not having any visual changes nor any pulmonary edema nor any right upper quadrant pain. Nonetheless we will send help labs, obtain a urinalysis to assess for protein to creatinine ratio and obtain an LDH and uric acid levels. Patient's discomfort and vomiting may also be causing her to be hypertensive. She is not altered to suggest encephalitis. She has not recently been around the generator to suggest carbon monoxide poisoning. She has no neck pain nor fevers to suggest meningitis. As result I do not feel that the patient requires a lumbar puncture. I nor face considered cerebral venous sinus thrombosis however the patient reports that her headache feels reminiscent of prior headaches which have required emergency department evaluation. As result we will defer CT venogram at this point time. She has no use of oral contraceptive pills at this point making her lower risk for cerebral venous sinus thrombosis. Her headache was not sudden in onset to suggest intracranial hemorrhage. She has no eye pain to suggest glaucoma. Given her age my suspicion is low for giant cell arteritis. No rash to head to suggest trigeminal zoster. Patient has no focal neurological deficits to suggest CVA and as result I do not feel that the patient is a candidate for tPA. No reported tonic-clonic activity to suggest seizure so I do not feel that the patient EEG nor antiepileptics. Will attempt symptomatic treatment with promethazine. 4:45 AM Patient's blood pressure improved to 148/82 without intervention.CBC with no anemia or thrombocytopenia noted leukocytosis. 5 AM Patient's blood pressure continued to improve without intervention now at 138/78.Comprehensive metabolic with no ABDIEL and no LFT abnormalities. LDH within normal limits. Normal uric acid. Negative urine test. Nitrite urinalysis not consistent with infection. No proteinuria on urinalysis. 7:13 AM Patient felt improved with near resolution of her headache. She wanted to be discharged home. We will discharge home with empiric trial of expectant outpatient management. I advised patient that if she could not eat or drink that she should return to the ED. HPI General Date/Time Provider Initiated Documentation: 12/26/22 04:07 . HPI Narrative: This is a 32-year-old female with self-reported history of migraine headaches. She reports remotely seeing a neurologist when she was a pediatric patient in [place]. She said that today she developed a frontal headache which was reminiscent of prior migraines. Her dog was reportedly sprayed by a skunk and she often has olfactory triggers. Her headache worsens. She took 2 acetaminophen both at midnight and at 2 AM but became nauseous and vomited these up. She has had no visual symptoms. She has had no abdominal pain. She describes a bandlike tightness around the front of her head. She is 7 weeks . She reports that she had been treated for endometritis mastitis but is no longer on antibiotics. She reports she is having no lower abdominal pain nor any breast swelling nor pain. She reports outpatient follow-up with [facility] later this week. She smokes marijuana but denies routine tobacco and ethanol. She has no history of hypertension. She has not been around a generator at home. Patient is not on any oral control pills. Related Data Home Medications Medication Instructions Recorded Confirmed ondansetron 4 mg disintegrating 4 mg PO TID PRN nausea and 04/07/22 08/04/22 tablet vomiting #6 tabs omeprazole magnesium 10 mg oral 10 mg PO DAILY 08/04/22 08/04/22 suspension,delayed release (Prilosec) Previous Rx's Medication Instructions Recorded ondansetron 4 mg disintegrating 4 mg PO TID PRN nausea and 04/07/22 tablet vomiting #6 tabs Allergies Allergy/AdvReac Type Severity Reaction Status Date / Time gluten AdvReac Intermediate GI symptoms Unverified 09/06/22 10:56 General Stated Complaint: Headache SHONDA: 3 PFSH All Active Problems (Updated 12/26/22 @ 06:12 by Josue Gauthier MD) Frontal headache (Acute) Viral URI with cough (Acute) Medical History Chronic back pain Gluten intolerance Migraine Surgical History No significant past surgical history Family History Grandmother Non-Hodgkin lymphoma Social History Smoking/Tobacco Use Status: Former Tobacco Use Smoking risk assessment performed?: Yes Alcohol Intake: never Drug use: Never Substance use type: does not use and marijuana Do you feel safe at home: Yes Do you feel safe in your relationship?: Yes Exam Narrative Exam Narrative: General: Uncomfortable-appearing in no acute distress speaking in complete sentences. Holding emesis basin. Head: Normocephalic, atraumatic Ear, nose, mouth, throat: Grossly normal inspection. Normal voice, handling secretions normally. Neck: Trachea midline. Cardiovascular: Well-perfused distal extremities. Regular rate and rhythm. Respiratory: Nonlabored respiration. Clear breath sounds bilaterally. Gastrointestinal: Nondistended abdomen. No right upper quadrant tenderness. Musculoskeletal: No edema. Moving all 4 extremities spontaneously. Skin: Normal for age and race, grossly normal temperature and turgor. No acute rash. Neurologic: Alert and appropriate, no apparent acute deficits.Cranial nerves 2 through 12 intact grossly. No dysmetria. No dysdiadochokinesia. Psychiatric: Mood and manner are appropriate. Grooming and personal hygiene are appropriate. Course Vital Signs Vital signs: Vital Signs Temperature 36.4 C L 12/26/22 04:05 Pulse 67 12/26/22 04:05 Respiratory Rate 18 12/26/22 04:05 Blood Pressure 153/93 H 12/26/22 04:05 Pulse Oximetry 99 12/26/22 04:05 Temperature 36.4 C L 12/26/22 04:05 Temperature Source Oral 12/26/22 04:05 Pulse 67 12/26/22 04:05 Respiratory Rate 18 12/26/22 04:05 Respiratory Effort Normal 12/26/22 04:11 Blood Pressure 153/93 H 12/26/22 04:05 Blood Pressure Position Sitting 12/26/22 04:05 Pulse Oximetry 99 12/26/22 04:05 Oxygen Delivery Method Room Air 12/26/22 04:05 Oxygen Flow Rate 0 12/26/22 04:05 Pain Level 10 12/26/22 04:08
[2022-12-26 04:44] LABS: HCT 36.9 % (36.0-46.0); MCH 27.1 pg (27.0-33.0); MCHC 32.5 % (32.0-36.0); MCV 84 fL (80-95); MPV 9.8 fL (8.0-11.0); Platelet Count 259 10^3/uL (130-400); RBC 4.42 10^6/uL (3.93-5.22); RDW 17.7 % (11.7-14.6); RDW-SD 54.1 fL; WBC 7.36 10^3/uL (4.4-10.8)
[2022-12-26 04:57] LABS: Magnesium 1.8 mg/dL (1.8-2.4)
[2022-12-26] MEDS: Ketorolac 15 MG/ML VIAL IVP (04:58)
[2022-12-26] MEDS: Normal Saline 1,000 ML 1000 ML IV (04:59)
[2022-12-26 05:01] LABS: ALT 21 U/L (14-59); AST 13 U/L (15-37); Albumin 3.9 g/dL (3.4-5.0); Alkaline Phosphatase 73 U/L (46-116); Anion Gap 10.5 mmol/L (3-11); BUN 20 mg/dL (7-18); Bilirubin, Total 0.2 mg/dL (0.2-1.0); CO2 27.5 mmol/L (21.0-32.0); CREATININE 0.8 mg/dL (0.55-1.02); Calcium 9.4 mg/dL (8.5-10.1); Chloride 103 mmol/L (98-107); Estimated GFR 100.96 (mL/min/1.73m2); Glucose 108 mg/dL (74-106); LDH 120 U/L (81-234); Potassium 3.6 mmol/L (3.5-5.1); Sodium 141 mmol/L (136-145); Total Protein 7.8 g/dL (6.4-8.2); Uric Acid 4.6 mg/dL (2.6-6.0)
[2022-12-26 05:01] LABS: Bilirubin Negative (Negative); Blood Negative (Negative); Clarity Sl Cloudy (Clear); Glucose Negative (Negative); Ketones Negative (Negative); Leukocyte Esterase Small (Negative); Nitrite Negative (Negative); Specific Gravity 1.025 (1.005-1.025); Urobilinogen 0.2 mg/dL (Up to 0.2)
[2022-12-26 05:26] LABS: Bacteria Moderate HPF (Negative); C & S Indicated? No/Sq. Contamination; Crystals Negative HPF (Negative); Epithelial Cells Many HPF (Negative); Mucus Negative (Negative); RBC 0-2 HPF (0-2)
[2022-12-26 07:24] VITALS: BP 112/67; PULSE 66; RESP 16; TEMP 36.6; O2SAT 99
== END 2022-12-26 08:06 | disposition home or self-care (01) ==
PROVIDERS: Emergency Provider Emergency Medicine
DX: R51.9 Headache, unspecified (principal); I10 Essential (primary) hypertension
CPT/HCPCS: 80053; 81025; 85027; 96361; 96365; 96375; 99284; 81003; 81015; 83615; 83735; 84550; J1885

== ENCOUNTER 2023-02-18 19:25 | Emergency (ER) | payer MEDICAID, SELFPAY ==
[2023-02-18 19:29] VITALS: BP 144/82; PULSE 73; RESP 20; TEMP 36.7; O2SAT 99
[2023-02-18] MEDS: Dexamethasone 10 MG/ML VIAL IVP (20:09)
[2023-02-18] MEDS: diphenhydrAMINE 50 MG/ML VIAL 25 MG IVP (20:10)
[2023-02-18] MEDS: Ketorolac 15 MG/ML VIAL IVP (20:10)
[2023-02-18] MEDS: Normal Saline 1,000 ML 1000 ML IV (20:10)
[2023-02-18] MEDS: Ondansetron O.D.T. 4 MG TABEF PO (20:10)
--- NOTE | 2023-02-18 21:09 | ED.GENADUL_ITS ---
Discharge Plan Disposition Patient Disposition: Home Condition: Improving Discharge Details Clinical Impression: Headache Primary Care Provider: Vikki Sparks ED Provider: Hiram Perry Home Meds and New Rx's Prescriptions: Continued Prilosec 10 mg susp,delayed release for recon 10 mg PO DAILY ondansetron 4 mg tablet,disintegrating 4 mg PO TID PRN (Reason: nausea and vomiting) Qty: 6 0RF Discharge Instructions Instructions: General Headache (ED) Additional Instructions: You may continue to take [id number] acetaminophen or Excedrin Migraine as needed for further headaches. Please continue to get plenty of rest and stay well-hydrated. Feel free to return to the emergency department for any new or significant worsening of symptoms. Referrals: Vikki Sparks [Primary Care Provider] - (As needed for reassessment) Medical Decision Making Patient presenting to the emergency department for chief complaint of headache. Patient states history of migraines with similar sensation in presentation to previous episodes. She states this started yesterday evening and attempted to take acetaminophen which typically will help but did not help. She states is progressed to more photosensitivity and some nausea and vomiting. Denies fever chills, stiff neck, or focal neurological deficits. Physical exam shows no gross focal neurological findings, and exam is otherwise unremarkable beyond noted photophobia. We will treat symptomatically with fluids, ketorolac, Zofran, and Benadryl and will give dose of Decadron. Reassessed patient and she does state some improvement of symptoms but not full resolution. Patient is only taken 1300mg of acetaminophen today with last dose being greater than 4 hours ago. Given this we will give patient IV dose of acetaminophen to see if this further helps her symptoms. Reassessed patient and she did state significant improvement of symptoms. Do feel that patient can be safely discharged to continue use of medication at home. After discussion of diagnosis and plan of care patient has no further needs, questions, or concerns and states clear understanding to return to the emergency department for any worsening symptoms. This documentation was generated using [employer] system, please disregard any oddities of phrase or misspellings. HPI General Mode of arrival: ambulatory . Date/Time Provider Initiated Documentation: 02/18/23 19:34 . Limitations to Documentation: no limitations . Information obtained by: patient and RN notes reviewed . History of Present Illness 32 year old F presents to the emergency department with the chief complaint of Headache, described as moderate and similar to prior episodes, with intensity rated at 8. Quality is described as aching, and is localized to the head. Patient reports no radiation. Patient started experiencing this day(s) (1) and it has been constant. No relieving factors improve symptom(s), No exacerbating factors reported . Patient notes nausea/vomiting. Patient did receive the following treatments prior to arrival, other (Acetaminophen) Related Data Home Medications Medication Instructions Recorded Confirmed ondansetron 4 mg disintegrating 4 mg PO TID PRN nausea and 04/07/22 08/04/22 tablet vomiting #6 tabs omeprazole magnesium 10 mg oral 10 mg PO DAILY 08/04/22 08/04/22 suspension,delayed release (Prilosec) Previous Rx's Medication Instructions Recorded ondansetron 4 mg disintegrating 4 mg PO TID PRN nausea and 04/07/22 tablet vomiting #6 tabs Allergies Allergy/AdvReac Type Severity Reaction Status Date / Time gluten AdvReac Intermediate GI symptoms Unverified 09/06/22 10:56 General Stated Complaint: Headache SHONDA: 3 Review of Systems Constitutional Constitutional: Denies body ache(s), Denies chills, Denies fever(s), Reports headache(s) and Denies weakness Eyes Eyes: Denies change in vision and Reports photophobia ENT Ears, Nose, Mouth, and Throat: Denies dizziness and Reports headache(s) Cardiovascular Cardiovascular: Denies chest pain and Denies syncope Gastrointestinal Gastrointestinal: Reports nausea and Reports vomiting Neurologic Neurologic: Reports as per HPI, Denies dizziness, Denies syncope, Reports headache(s), Denies sensory deficit and Denies weakness PFSH All Active Problems (Updated 02/18/23 @ 22:29 by Hiram Perry NP) Headache (Acute) Viral URI with cough (Acute) Medical History Chronic back pain Gluten intolerance Migraine Surgical History No significant past surgical history Family History Grandmother Non-Hodgkin lymphoma Social History Smoking/Tobacco Use Status: Former Tobacco Use Smoking risk assessment performed?: Yes Alcohol Intake: never Drug use: Never Substance use type: does not use and marijuana Do you feel safe at home: Yes Do you feel safe in your relationship?: Yes Exam Const General: cooperative, healthy appearing, no acute distress and well groomed Orientation: alert, awake and oriented x3 HENMT Head: normal to inspection Ears: hearing grossly normal bilaterally and TM's normal bilaterally Mouth: oral mucosae normal and moist mucous membranes Throat: posterior oropharynx normal Eyes Visual Sargent: normal visual sargent by confrontation Alignment and Position: alignment normal Periorbital: periorbital findings normal Eyelids: eyelids normal Sclera: sclerae normal Cornea: corneas normal Pupils: PERRL EOM: EOM intact bilaterally Neck Neck: normal visual inspection, full ROM and no meningeal signs Resp Effort & Inspection: normal respiratory effort and able to speak in complete sentences Auscultation: clear to auscultation bilaterally Cardio Rate: regular rate Rhythm: regular rhythm Heart Sounds: S1 normal and S2 normal Neuro General: patient alert, patient awake, patient oriented x3, gait normal, tone normal, moves all extremities, CN's II-XI intact bilaterally and not confused Cognition: normal cognition Speech: speech normal Motor: muscle tone normal throughout, strength 5/5 throughout, no pronator drift, no movement abnormalities noted and no fasciculations Sensory Exam: no sensory deficits noted Coordination: Romberg test normal and Does not sway with eyes open Course Vital Signs Vital signs: Vital Signs Temperature 36.7 C 02/18/23 19:29 Pulse 73 02/18/23 19:29 Respiratory Rate 20 02/18/23 19:29 Blood Pressure 144/82 H 02/18/23 19:29 Pulse Oximetry 99 02/18/23 19:29 Temperature 36.7 C 02/18/23 19:29 Pulse 73 02/18/23 19:29 Respiratory Rate 20 02/18/23 19:29 Respiratory Effort Normal 02/18/23 19:57 Blood Pressure 144/82 H 02/18/23 19:29 Blood Pressure Position Sitting 02/18/23 19:29 Pulse Oximetry 99 02/18/23 19:29 Oxygen Delivery Method Room Air 02/18/23 19:29 Oxygen Flow Rate 0 05/06/23 19:29 Pain Level 8 02/18/23 19:29 Lab/Test Results Lab/Test Results: POC- Test(urine) Negative
[2023-02-18 23:08] VITALS: BP 123/72; PULSE 69; RESP 16; O2SAT 99
== END 2023-02-18 23:10 | disposition home or self-care (01) ==
PROVIDERS: Emergency Provider Nurse Practitioner Family
DX: R51.9 Headache, unspecified (principal); R11.2 Nausea with vomiting, unspecified
CPT/HCPCS: 36415; 81025; 96361; 96365; 96375; 99284; J0131; J1100; J1200; J1885

== ENCOUNTER 2023-03-18 15:02 | Emergency (ER) | payer MEDICAID, SELFPAY ==
[2023-03-18 15:07] VITALS: BP 114/63; PULSE 86; RESP 18; TEMP 36.7; O2SAT 98
--- NOTE | 2023-03-18 15:22 | ED.GENADUL_ITS ---
Discharge Plan Disposition Patient Disposition: Home Condition: Stable Discharge Details Clinical Impression: External ear disorder, Skin pimple Primary Care Provider: Vikki Sparks ED Provider: Jordyn Mi Home Meds and New Rx's Prescriptions: No Action Prilosec 10 mg susp,delayed release for recon 10 mg PO DAILY ondansetron 4 mg tablet,disintegrating 4 mg PO TID PRN (Reason: nausea and vomiting) Qty: 6 0RF Discharge Instructions Instructions: Cyst (ED) Additional Instructions: It appears you have a pimple in your ear canal. You may apply a small amount of hydrocortisone cream which you can get [id number] onto your finger and place into ear canal up to 3 times a day. Some warm compresses may also help. Please take Tylenol or Ibuprofen with food every 4-6 hours as needed for pain and swelling. Follow up with primary care provider in 3-5 days. Return to ED sooner if any worsening or concerns. Increase oral fluids. Referrals: Vikki Sparks [Primary Care Provider] - 1 week Discharge Data Discharge Date/Time-TO BE ENTERED AT DEPARTURE: 03/18/23 16:04 Medical Decision Making 32-year-old female presents to the ER with chief complaint of right ear pain she is accompanied by her daughter who is also being seen for rash. She reports this for 2 days pain radiates into the jaw. On exam there is a swollen area in the ear canal. No drainage, TM is within normal limits. Instructed to apply hydrocortisone cream into ear canal couple times a day. Follow-up with PCP if any worsening. This text was generated using [employer] dictation system, please disregard any oddities of phrase or misspellings. HPI General Mode of arrival: ambulatory . Date/Time Provider Initiated Documentation: 03/18/23 15:03 . Limitations to Documentation: no limitations . Information obtained by: patient, RN notes reviewed and old records reviewed . HPI Narrative: 32-year-old female presents to the ER with chief complaint of right ear pain she is accompanied by her daughter who is also being seen for rash. She reports this for 2 days pain radiates into the jaw. On exam there is a swollen area in the ear canal. No drainage, TM is within normal limits. Related Data Home Medications Medication Instructions Recorded Confirmed ondansetron 4 mg disintegrating 4 mg PO TID PRN nausea and 04/07/22 03/18/23 tablet vomiting #6 tabs omeprazole magnesium 10 mg oral 10 mg PO DAILY 08/04/22 03/18/23 suspension,delayed release (Prilosec) Previous Rx's Medication Instructions Recorded ondansetron 4 mg disintegrating 4 mg PO TID PRN nausea and 04/07/22 tablet vomiting #6 tabs Allergies Allergy/AdvReac Type Severity Reaction Status Date / Time gluten AdvReac Intermediate GI symptoms Unverified 09/06/22 10:56 General Stated Complaint: EarProblem SHONDA: 4 Review of Systems All systems reviewed & are unremarkable except as noted in HPI and below ENT Ears, Nose, Mouth, and Throat: Reports as per HPI, Denies ear discharge, Reports otalgia (External auditory canal) and Reports facial pain PFSH All Active Problems (Updated 03/21/23 @ 00:24 by DANO PAULSON) External ear disorder (Acute) Skin pimple (Acute) Viral URI with cough (Acute) Medical History Chronic back pain Gluten intolerance Migraine Surgical History No significant past surgical history Family History Grandmother Non-Hodgkin lymphoma Social History Smoking/Tobacco Use Status: Former Tobacco Use Smoking risk assessment performed?: Yes Alcohol Intake: never Drug use: Never Substance use type: does not use and marijuana Do you feel safe at home: Yes Do you feel safe in your relationship?: Yes Exam HENMT Ears: TM's normal bilaterally and EAC abnormal erythema and EAC tenderness (Small Pimple like area, at 7 oclock, no drainage) on the right Outer ear/TM images: 1. Small amount of erythema and swelling. Course Vital Signs Vital signs: Vital Signs Temperature 36.7 C 03/18/23 15:07 Pulse 86 03/18/23 15:07 Respiratory Rate 18 03/18/23 15:07 Blood Pressure 114/63 03/18/23 15:07 Pulse Oximetry 98 03/18/23 15:07 Temperature 36.7 C 03/18/23 15:07 Temperature Source Temporal Artery Scan 03/18/23 15:07 Pulse 86 03/18/23 15:07 Respiratory Rate 18 03/18/23 15:07 Respiratory Effort Normal, Non-Labored 03/18/23 15:06 Blood Pressure 114/63 03/18/23 15:07 Pulse Oximetry 98 03/18/23 15:07 Oxygen Delivery Method Room Air 03/18/23 15:07 Oxygen Flow Rate 0 03/18/23 15:07
== END 2023-03-18 16:04 | disposition home or self-care (01) ==
PROVIDERS: Emergency Provider Registered Nurse Emergency
DX: H92.01 Otalgia, right ear (principal); R23.8 Other skin changes
CPT/HCPCS: 99282; 99283

== ENCOUNTER 2023-05-17 10:28 | Outpatient (REF) | payer MEDICAID, SELFPAY ==
[2023-05-17 21:12] LABS: Bilirubin Small (Negative); Blood Negative (Negative); Clarity Turbid (Clear); Glucose Negative (Negative); Ketones 40 mg/dL (Negative); Leukocyte Esterase Negative (Negative); Nitrite Negative (Negative); Specific Gravity >= 1.030 (1.005-1.025); Urobilinogen 0.2 mg/dL (Up to 0.2); pH 5.5 (5-8)
[2023-05-17 22:10] LABS: Bacteria Negative HPF (Negative); Casts Negative LPF (Negative); Crystals Many Amorphous HPF (Negative); Epithelial Cells Many HPF (Negative); Mucus Heavy (Negative)
[2023-05-17 22:14] LABS: C & S Indicated? No/Sq. Contamination
[2023-05-19 13:29] LABS: Chlamydia Result Negative (Negative); GC Result Negative (Negative)
== END 2023-05-17 10:29 | disposition home or self-care (01) ==
LOC: LBN 10:28
PROVIDERS: Visit Provider Physician Assistant
DX: Z11.3 Encounter for screening for infections with a predominantly sexual mode of transmission (principal); R30.0 Dysuria; R39.9 Unspecified symptoms and signs involving the genitourinary system; B96.89 Other specified bacterial agents as the cause of diseases classified elsewhere
CPT/HCPCS: 87491; 87591; 81003; 81015; 87480; 87510; 87660

== ENCOUNTER 2023-09-30 15:24 | Outpatient (REF) | payer MEDICAID, SELFPAY | END 2023-09-30 15:25 | disposition home or self-care (01) | LOC: NCHCN 15:24 | PROVIDERS: PCP Nurse Practitioner Family; Visit Provider Physician Assistant | DX: N76.0 Acute vaginitis (principal); N89.8 Other specified noninflammatory disorders of vagina | CPT/HCPCS: 87480; 87510; 87660 ==

== ENCOUNTER 2023-11-27 14:55 | Outpatient (REF) | payer MEDICAID, SELFPAY ==
[2023-11-29 13:20] LABS: GC Result Negative (Negative)
[2023-11-29 16:07] LABS: Chlamydia Result Positive (Negative)
== END 2023-11-27 14:56 | disposition home or self-care (01) ==
LOC: LBN 14:55
PROVIDERS: PCP Nurse Practitioner Family; Visit Provider Physician Assistant
DX: N89.8 Other specified noninflammatory disorders of vagina (principal); R30.0 Dysuria; Z11.3 Encounter for screening for infections with a predominantly sexual mode of transmission
CPT/HCPCS: 87491; 87591; 87480; 87510; 87660

== ENCOUNTER 2024-02-01 16:16 | Outpatient (REF) | payer MEDICAID, SELFPAY | END 2024-02-01 16:17 | disposition home or self-care (01) | LOC: LBN 16:16 | PROVIDERS: PCP Nurse Practitioner Family; Visit Provider Nurse Practitioner Acute Care | DX: N39.0 Urinary tract infection, site not specified (principal) | CPT/HCPCS: 87086 ==

== ENCOUNTER 2024-03-19 13:25 | Emergency (ER) | payer MEDICAID, SELFPAY ==
[2024-03-19 13:29] VITALS: BP 141/65; PULSE 81; RESP 16; TEMP 36.3; O2SAT 99
--- NOTE | 2024-03-19 13:42 | ED.GENADUL_ITS ---
Discharge Plan Disposition Patient Disposition: Home Discharge Details Chief Complaint: Headache Clinical Impression: Migraine Primary Care Provider: Vikki Templeton ED Provider: Lai Batista Home Meds and New Rx's Prescriptions: No Action albuterol sulfate [Proventil HFA] 90 mcg/actuation HFA aerosol inhaler 2 puff inhalation Q6H PRN (Reason: shortness of breath or wheezing) Qty: 8.5 0RF sumatriptan succinate 50 mg tablet 50 mg PO PRN Patient Comments: TAKE 1 TABLET BY MOUTH ONCE NEEDED FOR MIGRAINE HEADACHE, MAY REPEAT DOSE AFTER 2 HOURS IF NEEDED UP TO A MAX OF 200MG / DAY Discharge Instructions Instructions: Migraine Headache (ED) Additional Instructions: You were seen in the emergency department for headache. We performed labs that were unremarkable. We gave you some medications to treat migraine. Your symptoms improved. This was likely worsening of your chronic migraines. Return here for worsening symptoms. You can take Tylenol and ibuprofen per bottle directions for any recurrent headache at home and you can also try your previously prescribed sumatriptan. Follow-up with your primary care doctor about this visit. Return here for any worsening symptoms. Referrals: Vikki Templeton [Primary Care Provider] - 2 weeks HPI General Date/Time Provider Initiated Documentation: 03/19/24 13:28 . HPI Narrative: 33-year-old female presents with headache. Long history of migraines and says this feels the same. Associated with some nausea and photophobia which is normal for her. No new features. Tried Tylenol and sumatriptan at home without relief. She denies any other complaints. No recent injuries. Currently on her period and she says this sometimes makes her migraines worse. Related Data Home Medications Medication Instructions Recorded Confirmed albuterol sulfate 90 mcg/actuation 2 puff inhalation Q6H PRN 10/16/23 03/19/24 aerosol inhaler (Proventil HFA) shortness of breath or wheezing #8.5 grams sumatriptan succinate 50 mg tablet 50 mg PO PRN 03/19/24 03/19/24 Previous Rx's Medication Instructions Recorded albuterol sulfate 90 mcg/actuation 2 puff inhalation Q6H PRN 10/16/23 aerosol inhaler (Proventil HFA) shortness of breath or wheezing #8.5 grams Allergies Allergy/AdvReac Type Severity Reaction Status Date / Time No Known Allergies Allergy Verified 03/19/24 13:31 General Stated Complaint: Headache SHONDA: 3 Review of Systems Constitutional Constitutional: Denies chills, Denies fever(s) and Reports headache(s) Eyes Eyes: Denies change in vision ENT Ears, Nose, Mouth, and Throat: Reports headache(s) and Denies odynophagia Cardiovascular Cardiovascular: Denies chest pain and Denies dyspnea Respiratory Respiratory: Denies dyspnea Gastrointestinal Gastrointestinal: Denies abdominal pain, Denies diarrhea, Reports nausea, Denies odynophagia and Denies vomiting Genitourinary Genitourinary: Denies dysmenorrhea, Denies dysuria, Denies pelvic pain, Denies urinary incontinence, Denies urinary hesitancy, Denies urinary urgency, Denies vaginal discharge and Reports other (vaginal bleeding on period) Musculoskeletal Musculoskeletal: Denies myalgias Integumentary/Breasts Skin/Breast: Denies changing lesions Neurologic Neurologic: Denies behavioral changes and Reports headache(s) Psychiatric Psychiatric: Denies behavioral changes Endocrine Endocrine: Denies heat intolerance Hematologic/Lymphatic Hematologic/Lymphatic: Denies lymphadenopathy Exam Const General: cooperative Nutritional Appearance: average body habitus Orientation: alert, awake and oriented x3 HENMT Head: normal to inspection Ears: external ears normal Mouth: moist mucous membranes Eyes Pupils: PERRL EOM: EOM intact bilaterally and No nystagmus Neck Neck: full ROM and no tracheal deviation Chest Chest: normal inspection of the chest Resp Auscultation: clear to auscultation bilaterally Cardio Rate: regular rate Rhythm: regular rhythm GI Inspection: normal to inspection Palpation: soft, no guarding, not rigid and nontender Back/Spine/Pelvis Back: No no CVA tenderness Thoracic/Lumbar Spine: thoracic and lumbar spine normal to inspection Skin General skin exam: no rashes or lesions noted Neuro General: patient alert, patient awake, patient oriented x3 and gait normal Cranial Nerves: CN's II-XI intact bilaterally, sense of smell intact, PERRL, accommodation normal, EOM intact bilaterally, no nystagmus and no nystagmus Cognition: normal cognition Speech: speech normal Gait: normal gait Motor: muscle tone normal throughout and strength 5/5 throughout Sensory Exam: no sensory deficits noted Extrem General: normal to inspection Course Vital Signs Vital signs: Vital Signs Temperature 36.3 C L 03/19/24 13:29 Pulse 81 03/19/24 13:29 Respiratory Rate 16 03/19/24 13:29 Blood Pressure 141/65 H 03/19/24 13:29 Pulse Oximetry 99 03/19/24 13:29 Temperature 36.3 C L 03/19/24 13:29 Temperature Source Skin 03/19/24 13:29 Pulse 81 03/19/24 13:29 Respiratory Rate 16 03/19/24 13:29 Blood Pressure 141/65 H 03/19/24 13:29 Blood Pressure Position Sitting 03/19/24 13:29 Pulse Oximetry 99 03/19/24 13:29 Oxygen Delivery Method Room Air 03/19/24 13:29 Oxygen Flow Rate 0 03/19/24 13:29 Pain Level 7 03/19/24 13:29 Medical Decision Making 33-year-old female long history of migraines presents with headache. Likely recurrent migraine. Says it feels similar to prior migraines with no new features. Nonfocal neurologic exam. No role for emergent imaging presently. Will treat her migraine with IV medications here and IV fluids. Will send some basic screening labs to look for contributing factors such as , hyponatremia, hypokalemia, hypoglycemia or other metabolic derangements that could be contributing. Will await labs and response to treatment for migraine and reevaluate. 240pm Labs unremarkable. Headache improved. Feels comfortable going home. Will discharge with return precautions. Medical Records Medical records reviewed: Yes I reviewed the patient's medical records. Lab Data Lab results reviewed: Yes I reviewed the patient's lab results. Labs: labs unremarkable Quality:SDOH Health Related Social Needs: No Data to Display PFSH All Active Problems (Updated 03/19/24 @ 14:42 by Lia Batista MD) Migraine (Chronic) Viral URI with cough (Acute) Medical History Gluten intolerance Chronic back pain Migraine Surgical History No significant past surgical history Family History Grandmother Non-Hodgkin lymphoma Social History Smoking/Tobacco Use Status: Former Tobacco Use Smoking risk assessment performed?: Yes Alcohol Intake: never Drug use: Never Substance use type: does not use and marijuana Do you feel safe at home: Yes Do you feel safe in your relationship?: Yes
[2024-03-19 14:05] LABS: Abs Immature Grans 0.03 10^3/uL (0.0-0.06); Absolute Basophil Count 0.03 10^3/uL (0.0-0.2); Absolute Eosinophil Count 0.09 10^3/uL (0.0-0.7); Absolute Lymphocyte Count 1.73 10^3/uL (1.2-3.4); Absolute Monocyte Count 0.79 10^3/uL (0.1-0.8); Absolute Neutrophil Count 5.18 10^3/uL (1.2-6.7); Basophils % 0.4 %; Eosinophils % 1.1 %; HCT 38.3 % (36.0-46.0); HGB 12.7 g/dL (11.2-15.7); Immature Grans % 0.4 %; MCH 28.9 pg (27.0-33.0); MCHC 33.2 % (32.0-36.0); MCV 87 fL (80-95); MPV 9.7 fL (8.0-11.0); Monocytes % 10.1 %; Platelet Count 257 10^3/uL (130-400); RBC 4.39 10^6/uL (3.93-5.22); RDW 13.5 % (11.7-14.6); RDW-SD 43.6 fL; WBC 7.85 10^3/uL (4.4-10.8)
[2024-03-19] MEDS: diphenhydrAMINE 50 MG/ML VIAL IVP (14:10)
[2024-03-19] MEDS: Normal Saline 1,000 ML 1000 ML IV (14:11)
[2024-03-19] MEDS: Ketorolac 15 MG/ML VIAL 30 MG IVP (14:11)
[2024-03-19] MEDS: Ondansetron 4 MG/2 ML VIAL IVP (14:12)
[2024-03-19 14:31] LABS: ALT 20 U/L (14-59); AST 11 U/L (15-37); Albumin 4.2 g/dL (3.4-5.0); Alkaline Phosphatase 52 U/L (46-116); BUN 12 mg/dL (7-18); Bilirubin, Total 0.4 mg/dL (0.2-1.0); CREATININE 0.9 mg/dL (0.55-1.02); Calcium 9.1 mg/dL (8.5-10.1); Chloride 105 mmol/L (98-107); Estimated GFR 87.11 (mL/min/1.73m2); Glucose 108 mg/dL (74-106); Potassium 3.7 mmol/L (3.5-5.1); Sodium 142 mmol/L (136-145); TSH (W/Ref FT4) 1.38 uIU/mL (0.36-3.74); Total Protein 7.7 g/dL (6.4-8.2)
[2024-03-19 14:36] LABS: HCG Qual (Serum) Negative
[2024-03-19 15:19] VITALS: BP 135/60; PULSE 59; RESP 18; TEMP 36.9; O2SAT 100
== END 2024-03-19 15:20 | disposition home or self-care (01) ==
PROVIDERS: Emergency Provider Student in an Organized Health Care Education/Training Program; PCP Nurse Practitioner Family
DX: G43.909 Migraine, unspecified, not intractable, without status migrainosus (principal)
CPT/HCPCS: 36415; 80053; 96361; 96374; 96375; 99284; 84443; 84703; 85025; 99283; J1200; J1885; J2405

== ENCOUNTER 2024-04-01 15:29 | Outpatient (REF) | payer MEDICAID, SELFPAY | END 2024-04-01 15:30 | disposition home or self-care (01) | LOC: LBN 15:29 | PROVIDERS: PCP Nurse Practitioner Family; Visit Provider Family Medicine | DX: J02.9 Acute pharyngitis, unspecified (principal) | CPT/HCPCS: 87070 ==

== ENCOUNTER 2024-05-10 16:20 | Outpatient (REF) | payer MEDICAID, SELFPAY ==
[2024-05-13 14:16] LABS: Chlamydia Result Negative (Negative); GC Result Negative (Negative)
== END 2024-05-10 16:21 | disposition home or self-care (01) ==
LOC: LBN 16:20
PROVIDERS: PCP Nurse Practitioner Family; Visit Provider Physician Assistant
DX: R30.0 Dysuria (principal); Z11.3 Encounter for screening for infections with a predominantly sexual mode of transmission; N89.8 Other specified noninflammatory disorders of vagina
CPT/HCPCS: 87491; 87591; 87480; 87510; 87660

== ENCOUNTER 2024-10-01 16:10 | Outpatient (REF) | payer MEDICAID, SELFPAY ==
[2024-10-01 21:14] LABS: Bilirubin Negative (Negative); Blood Negative (Negative); Clarity Cloudy (Clear); Glucose Negative (Negative); Ketones Trace mg/dL (Negative); Leukocyte Esterase Negative (Negative); Nitrite Negative (Negative); Specific Gravity 1.025 (1.005-1.025); Urobilinogen 0.2 mg/dL (Up to 0.2); pH 6.5 (5-8)
[2024-10-01 21:20] LABS: Epithelial Cells Few HPF (Negative); RBC Negative HPF (0-2); WBC Negative HPF (0-5)
[2024-10-01 21:21] LABS: Bacteria Few HPF (Negative); C & S Indicated? No; Casts Negative LPF (Negative); Crystals Moderate Amorphous HPF (Negative); Mucus Negative (Negative)
== END 2024-10-01 16:11 | disposition home or self-care (01) ==
LOC: LBN 16:10
PROVIDERS: PCP Nurse Practitioner Family; Visit Provider Nurse Practitioner Family
DX: N39.0 Urinary tract infection, site not specified (principal)
CPT/HCPCS: 81003; 81015; 87480; 87510; 87660

== ENCOUNTER 2025-02-04 06:17 | Emergency (ER) | payer MEDICAID, SELFPAY ==
[2025-02-04] VITALS (12 sets, daily range): BP systolic 106–132; BP diastolic 49–82; PULSE 56–76; RESP 14; TEMP 36.6; O2SAT 96–99
--- NOTE | 2025-02-04 06:35 | ED.GENADUL_ITS ---
Discharge Plan Disposition Condition: Improving Discharge Details Chief Complaint: Headache Clinical Impression: Headache, migraine Primary Care Provider: Vikki Templeton ED Provider: Familia Whitaker Home Meds and New Rx's Prescriptions: No Action albuterol sulfate [Proventil HFA] 90 mcg/actuation HFA aerosol inhaler 2 puff inhalation Q6H PRN (Reason: shortness of breath or wheezing) Qty: 8.5 0RF ondansetron 4 mg tablet,disintegrating 4 mg PO DAILY PRN Patient Comments: DISSOLVE ONE TABLET ON THE TONGUE EVERY 8 HOURS NEEDED FOR NAUSEA/VOMITING metoclopramide HCl 10 mg tablet 10 mg PO DAILY PRN Patient Comments: TAKE ONE TABLET BY MOUTH FOUR TIMES A DAY sumatriptan succinate 50 mg tablet 50 mg PO PRN Patient Comments: TAKE 1 TABLET BY MOUTH ONCE NEEDED FOR MIGRAINE HEADACHE, MAY REPEAT DOSE AFTER 2 HOURS IF NEEDED UP TO A MAX OF 200MG / DAY HPI General Date/Time Provider Initiated Documentation: 02/04/25 06:31 . HPI Narrative: The patient is a 34-year-old female, with a past medical history significant for migraine headaches, who presents the emergency department this evening com plaining of a migraine which began earlier in the day today and has not abated despite the use of home medications including ondansetron, sumatriptan, and Reglan. The patient states that her headache began behind her right eye and has spread to her forehead and down the ipsilateral side of her neck. She has associated nausea but no vomiting. The patient feels like she simply cannot get her headache under control because she has been having a lack of sleep and weather since she recently had a new baby. The patient is not breast-feeding currently. Related Data Home Medications ?Medication ?Instructions ?Recorded ?Confirmed albuterol sulfate 90 mcg/actuation 2 puff inhalation Q6H PRN 10/16/23 02/04/25 aerosol inhaler (Proventil HFA) shortness of breath or wheezing #8.5 grams sumatriptan succinate 50 mg tablet 50 mg PO PRN 03/19/24 02/04/25 metoclopramide HCl 10 mg tablet 10 mg PO DAILY PRN 02/04/25 02/04/25 ondansetron 4 mg disintegrating 4 mg PO DAILY PRN 02/04/25 02/04/25 tablet Previous Rx's ?Medication ?Instructions ?Recorded albuterol sulfate 90 mcg/actuation 2 puff inhalation Q6H PRN 10/16/23 aerosol inhaler (Proventil HFA) shortness of breath or wheezing #8.5 grams Allergies Allergy/AdvReac Type Severity Reaction Status Date / Time No Known Allergies Allergy Verified 02/04/25 06:29 General Stated Complaint: Headache SHONDA: 3 Exam HENMT Head: normocephalic and atraumatic General nose exam: external nose normal and no nasal discharge noted Face and sinus: normal facial exam, sinuses nontender and face symmetric Neck Neck: full ROM and meningismus present Resp Effort & Inspection: normal respiratory effort and able to speak in complete sentences Auscultation: clear to auscultation bilaterally Cardio Rate: regular rate Rhythm: regular rhythm Skin General skin exam: no rashes or lesions noted, elasticity normal and turgor normal Neuro General: patient alert, patient awake, patient oriented x3, no focal motor deficits and CN's II-XI intact bilaterally Course Vital Signs Vital signs: Vital Signs Temperature 36.6 C 02/04/25 06:23 Pulse 68 02/04/25 06:23 Respiratory Rate 14 02/04/25 06:23 Blood Pressure 132/53 L 02/04/25 06:23 Pulse Oximetry 97 02/04/25 06:23 Temperature 36.6 C 02/04/25 06:23 Temperature Source Oral 02/04/25 06:23 Pulse 68 02/04/25 06:23 Respiratory Rate 14 02/04/25 06:23 Blood Pressure 132/53 L 02/04/25 06:23 Blood Pressure Position Sitting 02/04/25 06:23 Pulse Oximetry 97 02/04/25 06:23 Oxygen Delivery Method Room Air 02/04/25 06:23 Oxygen Flow Rate 0 02/04/25 06:23 Pain Level 7 02/04/25 06:30 Medical Decision Making The patient was seen and examined. She is in no distress and has normal vital signs for the emergency room. The patient will be started on IV fluids and given a combination of IV Reglan and IV Toradol to see if this improves her headaches. The patient could also be given some IV ondansetron, IV acetaminophen, and IV diphenhydramine if needed for additional relief of her symptoms. Assuming the patient's headache resolves with the management here in the emergency room, she can be discharged to primary care or specialty follow-up for ongoing management if needed. The case will be signed out across the morning shift to the daytime provider for final disposition. Quality:SDOH Health Related Social Needs: No Data to Display PFSH All Active Problems (Updated 02/04/25 @ 06:49 by Familia Whitaker MD) Headache, migraine (Chronic) Sinus pressure (Acute) Viral URI with cough (Acute) Medical History Gluten intolerance Chronic back pain Migraine Surgical History No significant past surgical history Family History Grandmother Non-Hodgkin lymphoma Social History Smoking/Tobacco Use Status: Former Tobacco Use Smoking risk assessment performed?: Yes Alcohol Intake: never Drug use: Never Substance use type: does not use and marijuana Do you feel safe at home: Yes Do you feel safe in your relationship?: Yes
--- NOTE | 2025-02-04 06:54 | ED.PROG_ITS ---
Date of service: 02/04/25 Time of Service: 06:55 Medical Decision Making In brief, this is a 34-year-old female patient, approximately 1 and half weeks with a history of migraines presenting for atypical migraine that did not respond to home medications. At the time that I received signout of this p atient, she was receiving her first round of headache medication to include Toradol, Reglan, and a liter of IV fluids. I monitored the patient's vital signs, she never developed hypertension that wou ld be concerning for preeclampsia, and had complete resolution of her headache after the above-noted medications. Her repeat examination was quite reassuring, and I provided her with a refill of her sumatriptan hand for ongoing home use. At this time, the patient has had a full medical evaluation and is safe for discharge to home. They are hemodynamically stable, ambulatory, and tolerating PO. They are understanding of the follow-up plan and return precautions. They left our facility without incident. Marleen Garcia MD Medical Records Medical records reviewed: Yes I reviewed the patient's medical records. Quality:[facility] Health Related Social Needs: No Data to Display Discharge Plan Disposition Patient Disposition: Home Condition: Stable Discharge Details Clinical Impression: Headache, migraine Primary Care Provider: Vikki Templeton ED Provider: Marleen Garcia Home Meds and New Rx's Prescriptions: Continued sumatriptan succinate 50 mg tablet 50 mg PO PRN Qty: 10 0RF No Action albuterol sulfate [Proventil HFA] 90 mcg/actuation HFA aerosol inhaler 2 puff inhalation Q6H PRN (Reason: shortness of breath or wheezing) Qty: 8.5 0RF ondansetron 4 mg tablet,disintegrating 4 mg PO DAILY PRN Patient Comments: DISSOLVE ONE TABLET ON THE TONGUE EVERY 8 HOURS NEEDED FOR NAUSEA/VOMITING metoclopramide HCl 10 mg tablet 10 mg PO DAILY PRN Patient Comments: TAKE ONE TABLET BY MOUTH FOUR TIMES A DAY Discharge Instructions Instructions: Headache, Adult ED Additional Instructions: You were seen in the emergency department today for evaluation of a migraine headache. In our department you do full physical examination performed, had reassuring vital signs and received medications which improved your headache. It is safe for you to go home and continue your normal medications and activities, please monitor for worsening of your headache, and specifically any development of concerning symptoms that would be different for you. Please follow-up with your primary care provider in the next few days to discuss this visit and any symptoms that change, worsen, or persist. Thank you for allowing us to be part of your care.
[2025-02-04] MEDS: Normal Saline 1,000 ML 1000 ML IV (06:56)
[2025-02-04] MEDS: Ketorolac 30 MG/ML VIAL IVP (06:57)
[2025-02-04] MEDS: METOCLOPRAMIDE 10 MG in Normal Saline 50 ML 200 MG IVPB (06:57)
== END 2025-02-04 08:02 | disposition home or self-care (01) ==
PROVIDERS: Emergency Provider Emergency Medicine; PCP Nurse Practitioner Family
DX: G43.909 Migraine, unspecified, not intractable, without status migrainosus (principal); Z87.891 Personal history of nicotine dependence
CPT/HCPCS: 00123; 36415; 99283; J1885; J2765